=== PATIENT | female | born 1930 | race Caucasian/White ===

== ENCOUNTER 2018-03-14 03:41 | Inpatient (IN) | payer MEDICARE, OTHER ==
[~2018-03-14] VITALS: Ht 162.6 cm; Wt 85.3 kg
[~2018-03-14 03:41] MED LIST: ACETAMINOPHEN-1 EAC1 PO; ANTIVERT25 MG PO; ASPIRIN EC81 M1 PO; AZITHROMYCIN 2250 MG PO; Astepro NASAL; BACTRIM DS TAB1 EACH PO; CALTRATE-600 W1 EACH PO; CLARITIN10 MG PO; CLONAZEPAM 0.50.5 M1 PO; CLONAZEPAM 1 MG1 M1 PO; FAMOTIDINE20 MG PO; GABAPENTIN100 MG PO; HYDROCODONE-AP1 EAC6 PO; IRON325 PO; LISINOPRIL40 MG PO; MAGNESIUM400 MG PO; MECLIZINE HCL25 M1 PO; MYRBETRIQ25 MG PO; NORVASC10 MG PO; PEPCID20 MG PO; PRAMOSONE 2.528.4 GM; SYNTHROID100 MCG PO; SYNTHROID75 MCG PO; TESSALON PERLE100 MG PO; VITAMIN B-12500 MCG PO; VITAMIN D1000 UNI1 PO; VITAMIN E400 UNIT PO; VITAMINC500 PO; ZYRTEC10 M5 PO
[2018-03-14 03:48] VITALS: BP 172/83
[2018-03-14 04:14] LABS: ABSOLUTE BASOPHILS 0.1 thou/uL (0.0-0.2); ABSOLUTE EOSINOPHILS 0.4 thou/uL (0.0-0.7); ABSOLUTE MONOCYTES 0.9 thou/uL (0.0-1.2); BASOPHILS 1.5 %; EOSINOPHILS 5.9 %; HEMATOCRIT 38.7 % (37.0-47.0); LYMPHOCYTES 15.3 %; MCH 34.4 pg (26.0-34.0); MCHC 33.6 g/dL (28.0-37.0); MCV 102.5 fL (80.0-100.0); MONOCYTES 14.7 %; MPV 6.4 fl. (7.2-11.1); NUCLEATED RBCS 0 /100WBC; PLATELET COUNT* 284 thou/uL (150-400); POLYS 62.6 %; RBC 3.78 mil/uL (4.20-5.00); RDW-CV 13.7 % (10.5-14.5); WBC 6.3 thou/uL (4.0-11.0)
[2018-03-14 04:30] LABS: ANION GAP < 0 mmol/L (7-16); BUN 23 mg/dL (7-18); CHLORIDE 104 mmol/L (98-107); CO2 35 mmol/L (21-32); GLUCOSE 118 mg/dL (70-99); POTASSIUM 3.5 mmol/L (3.5-5.1); SODIUM 138 mmol/L (136-145)
[2018-03-14 04:35] LABS: ALKALINE PHOSPHATASE 99 U/L (46-116); SGOT 19 U/L (15-37); SGPT 14 U/L (30-65); TOTAL BILIRUBIN 0.3 mg/dL (<0.1-1.0); TOTAL PROTEIN 6.5 g/dL (6.4-8.2)
[2018-03-14 05:12] LABS: URINE BILIRUBIN NEGATIVE (Negative); URINE BLOOD NEGATIVE (Negative); URINE CLARITY CLEAR; URINE COLOR YELLOW; URINE GLUCOSE-RANDOM NEGATIVE (Negative); URINE KETONES NEGATIVE (Negative); URINE LEUKOCYTES-REFLEX NEGATIVE (Negative); URINE NITRITE-REFLEX NEGATIVE (Negative); URINE PROTEIN NEGATIVE (Negative); URINE UROBILINOGEN 0.2 E.U./dl (0.2-1.0)
[2018-03-14 08:07] VITALS: BP 148/78
[2018-03-14 08:44] VITALS: BP 191/97
[2018-03-14 15:30] VITALS: BP 157/80
[2018-03-14 20:53] VITALS: BP 133/75
[2018-03-15 08:00] VITALS: BP 168/94
--- NOTE | 2018-03-15 14:00 | EKG ---
[place] [address] ELECTROCARDIOGRAM REPORT Name: JOSHUA SELF Room: [address] ADM IN M.R.#: [id number] Admission: 03/14/18 Attend Phys: Alhaji Garcia, Discharge: Date of : 31 Report #: [id number] THIS REPORT FOR: //name// [facility] Test Date: 2018-03-15 Test Time: 08:54:22 Pat Name: JOSHUA SELF Department: Room: [address] Gender: F Senior Ui Designer: : 1930 Requested By: Arvind Lima Order Number: [id number] William MD: Jaspal Archer Measurements Intervals [place] Rate: 66 P: 66 CT: 189 QRS: -19 QRSD: 93 T: 33 QT: 414 QTc: 434 Interpretive Statements Sinus rhythm Borderline left axis deviation Nonspecific T abnormalities, anterior leads Compared to ECG 05/24/2017 12:07:33 no change Electronically Signed On 03-15-2018 14:00:26 CDT by Jaspal Archer [email or web address] <ELECTRONICALLY SIGNED> By: Jaspal Archer MD, [facility] 03/15/18 1400 0854 0854 Jaspal Archer MD, [facility] /EPI
[2018-03-15 20:15] VITALS: BP 117/94; BP 132/81
[2018-03-16] VITALS: BP 117/62; BP 143/78
[2018-03-16 04:00] VITALS: BP 151/76
[2018-03-16 07:51] VITALS: BP 175/90
[2018-03-16 16:00] VITALS: BP 146/79
[2018-03-16 20:00] VITALS: BP 168/76
[2018-03-17 08:40] VITALS: BP 113/74
[2018-03-17 16:21] VITALS: BP 163/79
[2018-03-17] MEDS ORDERED: CARBAMAZEPINE200 M5 PO (20:46)
[2018-03-17 23:08] VITALS: BP 137/84
[2018-03-18 08:45] VITALS: BP 163/92
[2018-03-18 14:40] VITALS: BP 163/92
[2018-03-18 16:00] VITALS: BP 145/76
--- NOTE | 2018-03-21 15:12 | CON ---
[address] [address] CONSULTATION Name: JOSHUA SELF Room: [address]#: [id number] Admission: 03/14/18 Attend Phys: Alhaji Garcia, Discharge: 03/18/18 Date of : 31 Report #: [id number] THIS REPORT FOR: //name// CC: Olga Garcia DATE OF SERVICE: 03/17/2018 HISTORY OF PRESENT ILLNESS: The patient is an 88-year-old single white female who I was asked to see in the hospital today after she was noted to have an abnormal troponin. The patient has a long history of syncope. She apparently had a nuclear stress test at [facility] in the past. She has never had a heart catheterization. She apparently had a tilt table test in the past that was negative for neurocardiogenic syncope. She has had a 30-day event recorder in the past that showed no significant arrhythmias. She is felt to have possible vertigo or TIA. She actually saw my partner, Dr. Frazier, in the past. She has felt she may have had a TIA after one episode when she was not responding and fell to the ground. No further cardiac workup was recommended. The patient currently lives at home with her son. She is not very active and uses a walker. The patient was brought to the hospital 5 days ago. She apparently had fallen after feeling lightheaded. She hit her head on a chair. She used Life Alert to call paramedics. She denied any recent chest pain, shortness of breath, palpitations. She has had no recent vomiting or bleeding. She is known to have an abnormal troponin. Cardiology consultation was requested. PAST MEDICAL HISTORY: Significant for hysterectomy, knee surgery, cervical spine fusion, she has a history of hypertension. MEDICATIONS: On admission consisted of clonazepam, meclizine, lisinopril, Synthroid, aspirin. ALLERGIES: SHE HAS INTOLERANCE TO CIPRO AND PENICILLIN. FAMILY HISTORY: Mother had congestive heart failure. SOCIAL HISTORY: She is , lives in [place], [place]. No smoking or alcohol abuse. REVIEW OF SYSTEMS: She has had no definite history of stroke. She has had no history of asthma. She had breast cancer in the past, treated with radiation therapy. No history of peptic ulcer disease. She has had chronic kidney disease. She sees a psychiatrist. PHYSICAL EXAMINATION: GENERAL: Revealed an elderly female, sitting up in bed. She [place] [address] CONSULTATION Name: JOSHUA SELF Room: [address]#: [id number] Admission: 03/14/18 Attend Phys: Alhaji Garcia, Discharge: 03/18/18 Date of : 31 Report #: [id number] VITAL SIGNS: She had a blood pressure of 140/80, pulse 70. She is afebrile. HEENT: She is anicteric, conjunctiva pink. Mucous membranes appear dry. NECK: Veins do not appear distended. CHEST: Clear to auscultation. CARDIOVASCULAR: Regular rate and rhythm. ABDOMEN: Soft, nontender. EXTREMITIES: Had trace edema. SKIN: Cool and dry. NEUROLOGIC: She was slow moving. DIAGNOSTIC DATA: ECG showed a sinus rhythm with nonspecific T-wave changes. Her workup included x-rays consisting of CT scan of the head without contrast that showed age-related changes only. LABORATORY DATA: Sodium 140, creatinine 0.7. Liver function studies are normal. Albumin 2.7. Troponin 0.07. White blood cell count 5.5, hemoglobin 12.6. IMPRESSION AND RECOMMENDATIONS: 1. Fall. Recommend no further cardiac evaluation. 2. Borderline troponin. No history of angina. Recommend no further cardiac evaluation. 3. Hypertension. The patient is on an KHADIJAH inhibitor. 4. History of vertigo. 5. History of breast cancer. <ELECTRONICALLY SIGNED> By: Jaspal Archer MD, [facility] 03/21/18 1512 1144 1821Daviluis e Archer MD, FACC /nt
== END 2018-03-18 18:45 | disposition home health service (06) | DRG 542 ==
LOC: M.ERS 03:41 → M.TBA-ER 06:39 → M.2W 06:39 → M.3W 03-16 17:43
PROVIDERS: Emergency Medicine; ADMIT Family Medicine
DX: M80.08XA Age-related osteoporosis with current pathological fracture, vertebra(e), initial encounter for fracture (principal); E43 Unspecified severe protein-calorie malnutrition; J96.10 Chronic respiratory failure, unspecified whether with hypoxia or hypercapnia; F41.9 Anxiety disorder, unspecified; R26.9 Unspecified abnormalities of gait and mobility; E03.9 Hypothyroidism, unspecified; M17.0 Bilateral primary osteoarthritis of knee; I10 Essential (primary) hypertension; W18.39XA Other fall on same level, initial encounter; Y92.89 Other specified places as the place of occurrence of the external cause; Y93.89 Activity, other specified; Y99.8 Other external cause status; Z90.710 Acquired absence of both cervix and uterus; Z86.73 Personal history of transient ischemic attack (TIA), and cerebral infarction without residual deficits; Z85.3 Personal history of malignant neoplasm of breast; Z92.3 Personal history of irradiation; Z79.899 Other long term (current) drug therapy; Z88.1 Allergy status to other antibiotic agents; Z88.0 Allergy status to penicillin; Z88.5 Allergy status to narcotic agent; Z88.2 Allergy status to sulfonamides; Z98.1 Arthrodesis status; Z68.32 Body mass index [BMI] 32.0-32.9, adult

== ENCOUNTER 2018-04-27 14:36 | Inpatient (IN) | payer MEDICARE, OTHER ==
[~2018-04-27] VITALS: Ht 165.1 cm; Wt 81.7 kg
[~2018-04-27 14:36] MED LIST changes: +CARBAMAZEPINE200 M5 PO
[2018-04-27 14:37] VITALS: BP 163/79
[2018-04-27] MEDS ORDERED: B COMPLEX # 11 EACH PO (14:56)
[2018-04-27] MEDS ORDERED: CALCIUM 500 +1 EAC5 PO (14:57)
[2018-04-27] MEDS ORDERED: CELEXA20 MG PO (14:58)
[2018-04-27] MEDS ORDERED: LOTRISONE CREAM15 GM TOP (14:59)
[2018-04-27] MEDS ORDERED: VITAMIN B-12500 MCG PO (15:00)
[2018-04-27] MEDS ORDERED: COENZYME Q10200 M2 PO (15:00)
[2018-04-27] MEDS ORDERED: ENOXAPARIN80 MG/0.1 SUBQ (15:01)
[2018-04-27] MEDS ORDERED: HYDROCHLOROTH12.5 M1 PO (15:02)
[2018-04-27] MEDS ORDERED: MYRBETRIQ50 MG PO (15:03)
[2018-04-27] MEDS ORDERED: VESICARE 5 MG TA5 MG PO (15:03)
[2018-04-27] MEDS ORDERED: VOLTAREN GEL 1100 G2 TOP (15:04)
[2018-04-27] MEDS ORDERED: COUMADIN 5 MG TA5 M1 PO (15:04)
[2018-04-27 15:53] LABS: HEMOGLOBIN 12.3 gm/dL (12.0-15.0); MCH 35.2 pg (26.0-34.0); MCHC 34.2 g/dL (28.0-37.0); MCV 103.1 fL (80.0-100.0); MPV 6.1 fl. (7.2-11.1); NUCLEATED RBCS 0 /100WBC; PLATELET COUNT* 427 thou/uL (150-400); RBC 3.49 mil/uL (4.20-5.00); RDW-CV 13.9 % (10.5-14.5); WBC 4.3 thou/uL (4.0-11.0)
[2018-04-27 16:11] LABS: CREATININE 0.8 mg/dL (0.6-1.3)
[2018-04-27 16:15] LABS: TOTAL BILIRUBIN 0.3 mg/dL (<0.1-1.0); TOTAL PROTEIN 6.3 g/dL (6.4-8.2)
[2018-04-27 16:27] LABS: ABSOLUTE LYMPHOCYTES 1.3 thou/uL (0.8-5.3); ABSOLUTE MONOCYTES 0.3 thou/uL (0.0-1.2); ABSOLUTE NEUTROPHILS 2.7 thou/uL (1.6-8.1); PLATELET ESTIMATE ADEQUATE
[2018-04-27 18:27] LABS: URINE BILIRUBIN NEGATIVE (Negative); URINE BLOOD NEGATIVE (Negative); URINE CLARITY CLEAR; URINE COLOR YELLOW; URINE GLUCOSE-RANDOM NEGATIVE (Negative); URINE KETONES NEGATIVE (Negative); URINE LEUKOCYTES-REFLEX NEGATIVE (Negative); URINE NITRITE-REFLEX NEGATIVE (Negative); URINE PROTEIN NEGATIVE (Negative); URINE UROBILINOGEN 0.2 E.U./dl (0.2-1.0)
[2018-04-27 19:43] VITALS: BP 164/84
[2018-04-27 20:10] VITALS: BP 154/74
[2018-04-28] MEDS ORDERED: LISINOPRIL10 MG PO (01:20)
[2018-04-28] MEDS ORDERED: BONIVA150 MG PO (01:25)
[2018-04-28 05:21] LABS: HEMATOCRIT 34.3 % (37.0-47.0); HEMOGLOBIN 11.7 gm/dL (12.0-15.0); MCH 35.2 pg (26.0-34.0); MCHC 34.1 g/dL (28.0-37.0); MCV 103.2 fL (80.0-100.0); MPV 6.4 fl. (7.2-11.1); RBC 3.32 mil/uL (4.20-5.00); RDW-CV 13.8 % (10.5-14.5); WBC 4.6 thou/uL (4.0-11.0)
[2018-04-28 05:27] LABS: INR 1.9; PROTIME 19.6 Seconds (9.20-11.50)
[2018-04-28 05:31] LABS: CALCIUM 8.5 mg/dL (8.5-10.1); CREATININE 0.8 mg/dL (0.6-1.3); MAGNESIUM 1.8 mg/dL (1.8-2.4)
[2018-04-28 08:00] VITALS: BP 147/76
[2018-04-28 16:11] VITALS: BP 115/64
[2018-04-28 20:00] VITALS: BP 115/60
[2018-04-29 05:03] LABS: INR 2.2; PROTIME 22.2 Seconds (9.20-11.50)
[2018-04-29 08:00] VITALS: BP 115/60
[2018-04-29 15:59] VITALS: BP 103/61
[2018-04-29 21:00] VITALS: BP 122/62
[2018-04-30 04:56] LABS: INR 1.9; PROTIME 19.4 Seconds (9.20-11.50)
[2018-04-30 08:00] VITALS: BP 128/64
[2018-04-30 16:00] VITALS: BP 108/60
[2018-05-01] VITALS: BP 122/69
[2018-05-01 04:34] LABS: HEMATOCRIT 36.4 % (37.0-47.0); HEMOGLOBIN 12.2 gm/dL (12.0-15.0); MCH 34.9 pg (26.0-34.0); MCHC 33.4 g/dL (28.0-37.0); MCV 104.4 fL (80.0-100.0); MPV 6.4 fl. (7.2-11.1); RBC 3.49 mil/uL (4.20-5.00); WBC 5.1 thou/uL (4.0-11.0)
[2018-05-01 04:39] LABS: INR 1.6
[2018-05-01 04:45] LABS: CALCIUM 8.5 mg/dL (8.5-10.1); CREATININE 0.9 mg/dL (0.6-1.3); POTASSIUM 4.8 mmol/L (3.5-5.1)
[2018-05-01 08:00] VITALS: BP 128/70
[2018-05-01 16:40] VITALS: BP 118/67
[2018-05-02 01:28] VITALS: BP 117/64
[2018-05-02 04:16] LABS: CALCIUM 8.4 mg/dL (8.5-10.1); CREATININE 0.8 mg/dL (0.6-1.3); HEMATOCRIT 34.3 % (37.0-47.0); HEMOGLOBIN 11.8 gm/dL (12.0-15.0); MAGNESIUM 2.1 mg/dL (1.8-2.4); MCH 35.5 pg (26.0-34.0); MCHC 34.3 g/dL (28.0-37.0); MCV 103.4 fL (80.0-100.0); MPV 6.4 fl. (7.2-11.1); POTASSIUM 4.2 mmol/L (3.5-5.1); RBC 3.32 mil/uL (4.20-5.00); RDW-CV 13.9 % (10.5-14.5); WBC 4.6 thou/uL (4.0-11.0)
[2018-05-02 04:19] LABS: INR 1.4
[2018-05-02 16:10] VITALS: BP 82/48
[2018-05-02 20:00] VITALS: BP 110/68
[2018-05-03 05:07] LABS: INR 1.3; PROTIME 13.5 Seconds (9.20-11.50)
[2018-05-03 07:50] VITALS: BP 114/66
[2018-05-03] MEDS ORDERED: GABAPENTIN 100100 MG PO (12:26)
[2018-05-03 15:58] VITALS: BP 113/63
== END 2018-05-03 18:18 | DRG 543 ==
LOC: M.ERS 14:36 → M.TBA-ER 18:20 → M.3W 18:20
PROVIDERS: Family Medicine; Nurse Practitioner Family; ADMIT Internal Medicine
DX: M80.08XA Age-related osteoporosis with current pathological fracture, vertebra(e), initial encounter for fracture (principal); E44.0 Moderate protein-calorie malnutrition; G95.9 Disease of spinal cord, unspecified; I10 Essential (primary) hypertension; M47.895 Other spondylosis, thoracolumbar region; R26.9 Unspecified abnormalities of gait and mobility; D75.89 Other specified diseases of blood and blood-forming organs; Z68.30 Body mass index [BMI] 30.0-30.9, adult; Z86.73 Personal history of transient ischemic attack (TIA), and cerebral infarction without residual deficits; Z92.3 Personal history of irradiation; Z87.81 Personal history of (healed) traumatic fracture; Z85.3 Personal history of malignant neoplasm of breast; Z86.718 Personal history of other venous thrombosis and embolism; Z86.711 Personal history of pulmonary embolism; Z90.710 Acquired absence of both cervix and uterus; Z79.01 Long term (current) use of anticoagulants; Z79.82 Long term (current) use of aspirin; Z79.899 Other long term (current) drug therapy; Z88.0 Allergy status to penicillin; Z88.2 Allergy status to sulfonamides; Z88.5 Allergy status to narcotic agent; Z88.8 Allergy status to other drugs, medicaments and biological substances

== ENCOUNTER 2018-05-03 17:26 | Inpatient (IN) | payer MEDICARE, OTHER ==
[~2018-05-03] VITALS: Ht 165.1 cm; Wt 82.1 kg
--- NOTE | ~2018-05-03 | D ---
[facility] [address] [place] [address] DISCHARGE SUMMARY Name: JOSHUA SELF Room: [address] IN M.R.#: [id number] Admission: 05/03/18 Attend Phys: Brenda Puga DO Discharge: 05/17/18 Date of : 31 Report #: [id number] THIS REPORT FOR: //name// CC: RITU Puga Physician staff DATE OF SERVICE: 05/17/2018 The patient is discharged to a skilled level of care with PT, OT, case management and speech language pathology. When she is discharged from that level of care, she will follow with primary care physician within 1 week. She will maintain a regular diet. MEDICATIONS: Reviewed and reconciled by myself and are available in the MAR. PHYSICAL EXAMINATION: GENERAL: Alert, oriented, in no apparent distress. VITAL SIGNS: Reviewed and are stable. HEENT: Head atraumatic, normocephalic. Pupils equal, round, reactive. ABDOMEN: Soft, nontender, nondistended. NEUROLOGIC: Cranial nerves 2-12 are grossly intact with no focal neuro deficits; 5/5 strength in the bilateral upper and lower extremities. SKIN: Warm and dry. No rashes or lesions noted. By: 1526 [id number] Puga DO /nt
[~2018-05-03 17:26] MED LIST changes: +B COMPLEX # 11 EACH PO; +BONIVA150 MG PO; +CALCIUM 500 +1 EAC5 PO; +CELEXA20 MG PO; +COENZYME Q10200 M2 PO; +COUMADIN 5 MG TA5 M1 PO; +ENOXAPARIN80 MG/0.1 SUBQ; +GABAPENTIN 100100 MG PO; +HYDROCHLOROTH12.5 M1 PO; +LISINOPRIL10 MG PO; +LOTRISONE CREAM15 GM TOP; +MYRBETRIQ50 MG PO; +VESICARE 5 MG TA5 MG PO; +VOLTAREN GEL 1100 G2 TOP
[2018-05-03 18:40] VITALS: BP 127/70
[2018-05-03 19:45] VITALS: BP 130/56
[2018-05-03 19:53] VITALS: BP 109/60
[2018-05-04 04:14] LABS: HEMATOCRIT 31.9 % (37.0-47.0); HEMOGLOBIN 10.9 gm/dL (12.0-15.0); MCH 35.3 pg (26.0-34.0); MCHC 34.1 g/dL (28.0-37.0); MCV 103.6 fL (80.0-100.0); MPV 6.1 fl. (7.2-11.1); RBC 3.08 mil/uL (4.20-5.00); RDW-CV 13.6 % (10.5-14.5)
[2018-05-04 04:27] LABS: INR 1.3; PROTIME 13.5 Seconds (9.20-11.50)
[2018-05-04 04:41] LABS: CALCIUM 8.5 mg/dL (8.5-10.1); POTASSIUM 4.5 mmol/L (3.5-5.1)
[2018-05-04 07:59] VITALS: BP 108/60
[2018-05-04 20:15] VITALS: BP 83/48
[2018-05-05 04:19] LABS: INR 1.3; PROTIME 13.8 Seconds (9.20-11.50)
[2018-05-05 08:00] VITALS: BP 131/73
[2018-05-05 20:05] VITALS: BP 96/54
[2018-05-06 03:56] LABS: INR 1.4; PROTIME 14.2 Seconds (9.20-11.50)
[2018-05-06 07:36] VITALS: BP 105/56
[2018-05-06 20:00] VITALS: BP 119/67
[2018-05-07 05:23] LABS: INR 1.4; PROTIME 14.8 Seconds (9.20-11.50)
[2018-05-07 08:07] VITALS: BP 125/63
[2018-05-07 19:00] VITALS: BP 174/96
[2018-05-08 04:16] LABS: INR 1.5; PROTIME 15.1 Seconds (9.20-11.50)
[2018-05-08 08:02] VITALS: BP 122/74
[2018-05-08 09:07] VITALS: BP 122/74
[2018-05-08 20:15] VITALS: BP 100/59
[2018-05-09 08:03] VITALS: BP 114/59
[2018-05-09 19:55] VITALS: BP 97/64
[2018-05-10 07:30] VITALS: BP 115/60
[2018-05-10 14:37] LABS: CALCIUM 8.9 mg/dL (8.5-10.1); CREATININE 0.9 mg/dL (0.6-1.3); POTASSIUM 4.3 mmol/L (3.5-5.1)
[2018-05-10 20:00] VITALS: BP 140/75
[2018-05-11 07:53] VITALS: BP 103/60
--- NOTE | 2018-05-11 13:59 | PLAN ---
[address] [address] REHAB UNIT PLAN OF CARE Name: JOSHUA SELF Room: [address] IN .R.#: [id number] Admission: 05/03/18 Attend Phys: Brenda Puga DO Discharge: Date of : 31 Report #: [id number] THIS REPORT FOR: //name// CC: RITU Puga Physician staff The patient is an 88-year-old female with lumbar spondylosis with myelopathy. She is doing well this morning with therapies and is on adequate pain control. The patient's prior level of function was modified independent to independent and her current level of function is minimal assist. Her estimated length of stay on the rehab floor is 12-14 days. Her rehabilitation prognosis is good. Her medical prognosis is good. As far as physical therapy, the patient will be seen 60-90 minutes per day for 5 days a week for ambulation, balance and coordination. Occupational therapy, the patient will be seen 60-90 minutes per day for 5 days a week for upper extremity strength, balance, coordination, bathing, dressing, and toileting. For speech and language pathology, the patient will be seen 30-90 minutes per day for 5 days a week. This is an overall plan of care and may change and will be updated as needed. <ELECTRONICALLY SIGNED> By: Brenda Puga DO 05/11/18 1359 1211 1521Kelrosalina Puga DO /danika
[2018-05-11 19:57] VITALS: BP 140/65
[2018-05-12 07:49] VITALS: BP 145/71
[2018-05-12 20:00] VITALS: BP 135/79
[2018-05-13 08:00] VITALS: BP 141/70
[2018-05-13 09:31] VITALS: BP 141/70
[2018-05-13 19:56] VITALS: BP 138/76
[2018-05-14 08:05] VITALS: BP 143/72
[2018-05-14 20:00] VITALS: BP 119/76
[2018-05-15 05:04] LABS: HEMATOCRIT 32.4 % (37.0-47.0); HEMOGLOBIN 11.3 gm/dL (12.0-15.0); MCH 36.2 pg (26.0-34.0); MCHC 34.9 g/dL (28.0-37.0); MCV 103.8 fL (80.0-100.0); MPV 6.1 fl. (7.2-11.1); RBC 3.13 mil/uL (4.20-5.00); RDW-CV 13.8 % (10.5-14.5); WBC 3.7 thou/uL (4.0-11.0)
[2018-05-15 05:27] LABS: CALCIUM 8.7 mg/dL (8.5-10.1); CREATININE 0.9 mg/dL (0.6-1.3); POTASSIUM 4.2 mmol/L (3.5-5.1)
[2018-05-15 08:00] VITALS: BP 148/77
[2018-05-15 20:00] VITALS: BP 120/69
[2018-05-16 07:50] VITALS: BP 168/55
[2018-05-16 20:00] VITALS: BP 140/86
[2018-05-17 07:42] VITALS: BP 147/78
[2018-05-17] MEDS ORDERED: BONIVA150 MG PO ×2 (12:20→12:21)
[2018-05-17] MEDS ORDERED: CO Q-10100 MG PO (12:22)
[2018-05-17] MEDS ORDERED: FLEXERIL PO (12:28)
[2018-05-17] MEDS ORDERED: ELIQUIS5 MG PO (12:30)
[2018-05-17] MEDS ORDERED: NORVASC5 MG PO (12:32)
[2018-05-17] MEDS ORDERED: OXYBUTYNIN 5 MG5 M2 PO (12:33)
[2018-05-17] MEDS ORDERED: SEROQUEL 25 MG25 M1 PO (12:34)
[2018-05-17] MEDS ORDERED: TRAMADOL 50 MG50 MG PO ×2 (12:36→13:14)
[2018-05-17 12:49] VITALS: BP 147/78
[2018-05-17] MEDS ORDERED: CYCLOBENZAPRINE10 MG PO (13:14)
[2018-05-17] MEDS ORDERED: CLONAZEPAM 1 MG1 M1 PO (13:14)
--- NOTE | 2018-05-19 13:02 | CON ---
[address] [address] CONSULTATION Name: JOSHUA SELF Room: [address] IN .R.#: [id number] Admission: 05/03/18 Attend Phys: Brenda Puga DO Discharge: 05/17/18 Date of : 31 Report #: [id number] THIS REPORT FOR: //name// CC: RITU Puga Physician staff DATE OF SERVICE: 05/05/2018 CHIEF COMPLAINT: The patient is an 88-year-old female known to me as an outpatient in my office for routine podiatric foot care. 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 She was admitted to rehabilitation for lumbar spondylosis with myelopathy. 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 No underlying ulceration, inflammation, drainage or cardinal signs of infection. Severe hallux valgus bunion deformities and rigid hammertoes of the second through fourth toes bilaterally. She has palpable dorsalis pedis and posterior tibial pulses bilaterally, venous insufficiency with varicosities to both legs, onychomycosis without paronychia. IMPRESSION: Hallux valgus, hammertoe deformities, onychomycosis, plantar keratoma, right foot. PLAN: I debrided the keratoma with a scalpel and applied a 2 x 2 inch bordered foam with a piece of Aquacel Ag. I will follow up the patient in my office. I recommend a full length total contact insert with supportive shoes. <ELECTRONICALLY SIGNED> By: Levi Gracia DPM 05/19/18 1302 1654 2244Deden Gracia DPM /nt
== END 2018-05-17 15:00 | DRG 552 ==
LOC: M.REH 17:26
PROVIDERS: Family Medicine; Internal Medicine; ADMIT Physical Medicine & Rehabilitation
DX: M47.15 Other spondylosis with myelopathy, thoracolumbar region (principal); M80.88XA Other osteoporosis with current pathological fracture, vertebra(e), initial encounter for fracture; N17.9 Acute kidney failure, unspecified; D61.818 Other pancytopenia; M20.11 Hallux valgus (acquired), right foot; L57.0 Actinic keratosis; M21.611 Bunion of right foot; M20.41 Other hammer toe(s) (acquired), right foot; B35.1 Tinea unguium; M54.32 Sciatica, left side; M54.31 Sciatica, right side; M16.0 Bilateral primary osteoarthritis of hip; L25.8 Unspecified contact dermatitis due to other agents; R53.81 Other malaise; F43.21 Adjustment disorder with depressed mood; F32.9 Major depressive disorder, single episode, unspecified; I12.9 Hypertensive chronic kidney disease with stage 1 through stage 4 chronic kidney disease, or unspecified chronic kidney disease; N18.3 Chronic kidney disease, stage 3 (moderate); F41.9 Anxiety disorder, unspecified; D63.8 Anemia in other chronic diseases classified elsewhere; D52.9 Folate deficiency anemia, unspecified; Z86.711 Personal history of pulmonary embolism; Z86.718 Personal history of other venous thrombosis and embolism; Z86.73 Personal history of transient ischemic attack (TIA), and cerebral infarction without residual deficits; Z85.3 Personal history of malignant neoplasm of breast; Z88.8 Allergy status to other drugs, medicaments and biological substances; Z88.6 Allergy status to analgesic agent; Z88.0 Allergy status to penicillin; Z88.2 Allergy status to sulfonamides; Z79.899 Other long term (current) drug therapy; Z79.82 Long term (current) use of aspirin; Z90.710 Acquired absence of both cervix and uterus; Z92.3 Personal history of irradiation

== ENCOUNTER → 2018-06-24 | Outpatient (CLI) | payer MEDICARE, OTHER ==
[~2018-06-24] MED LIST changes: +CO Q-10100 MG PO; +CYCLOBENZAPRINE10 MG PO; +ELIQUIS5 MG PO; +FLEXERIL PO; +NORVASC5 MG PO; +OXYBUTYNIN 5 MG5 M2 PO; +SEROQUEL 25 MG25 M1 PO; +TRAMADOL 50 MG50 MG PO
== END ==
LOC: M.RAD 05-18 11:00
DX: R92.8 Other abnormal and inconclusive findings on diagnostic imaging of breast (principal)

== ENCOUNTER → 2018-06-29 | Outpatient (CLI) | payer MEDICARE, OTHER ==
[~2018-06-29] VITALS: Ht 165.1 cm; Wt 82.6 kg
[~2018-06-29] MED LIST changes: +COLACE100 MG PO; +FLEET ENEMA133 ML RECTAL; +LASIX 20 MG TAB20 MG PO; +MILK OF MA2400 MG/10 PO; +MIRALAX17 GM PO; +NORVASC2.5 MG PO; -NORVASC5 MG PO; +NYAMYC15 GM TOP; +POTASSIUM 25 M25 MEQ PO; +VISTARIL 25 MG25 M1 PO
[2018-06-29 18:12] VITALS: BP 144/79
[2018-06-29 18:28] LABS: HEMATOCRIT 33.7 % (37.0-47.0); HEMOGLOBIN 11.3 gm/dL (12.0-15.0); MCH 35.5 pg (26.0-34.0); MCHC 33.5 g/dL (28.0-37.0); MCV 106.1 fL (80.0-100.0); MPV 5.8 fl. (7.2-11.1); NUCLEATED RBCS 0 /100WBC; PLATELET COUNT* 463 thou/uL (150-400); RBC 3.18 mil/uL (4.20-5.00); RDW-CV 13.9 % (10.5-14.5); WBC 5.6 thou/uL (4.0-11.0)
[2018-06-29 18:38] LABS: ANION GAP 5 mmol/L (7-16); BUN 33 mg/dL (7-18); CALCIUM 8.9 mg/dL (8.5-10.1); CHLORIDE 101 mmol/L (98-107); CO2 36 mmol/L (21-32); CREATININE 1.2 mg/dL (0.6-1.3); GLUCOSE 115 mg/dL (70-99); INR 1.1; POTASSIUM 3.8 mmol/L (3.5-5.1); SODIUM 142 mmol/L (136-145)
[2018-06-29 18:49] LABS: ALKALINE PHOSPHATASE 160 U/L (46-116); LIPASE 108 U/L (73-393); NT-PRO BRAIN NAT PEPTIDE 210 pg/mL (<300); SGOT 23 U/L (15-37); SGPT 24 U/L (30-65); TOTAL BILIRUBIN 0.2 mg/dL (<0.1-1.0); TOTAL PROTEIN 6.3 g/dL (6.4-8.2); TROPONIN-I LEVEL <0.06 ng/mL (<0.06)
[2018-06-29 19:03] LABS: ABSOLUTE BASOPHILS 0.1 thou/uL (0.0-0.2); ABSOLUTE EOSINOPHILS 0.4 thou/uL (0.0-0.7); ABSOLUTE LYMPHOCYTES 0.7 thou/uL (0.8-5.3); ABSOLUTE MONOCYTES 0.4 thou/uL (0.0-1.2)
[2018-06-29 19:04] LABS: MACROCYTES 1+; PLATELET ESTIMATE ADEQUATE
--- NOTE | 2018-06-30 09:01 | EKG ---
[place] [address] ELECTROCARDIOGRAM REPORT Name: JOSHUA SELF Room: [facility]#: [id number] Admission: 06/29/18 Attend Phys: Barrington Herman, Discharge: Date of : 31 Report #: [id number] THIS REPORT FOR: //name// [facility] ED Test Date: 2018-06-29 Test Time: 17:48:16 Pat Name: JOSHUA SELF Department: Room: Gender: F Back Hoe Machine Operator: Yony OBANDO : 1930 Requested By: Vahid Matt Order Number: [id number] MD: Jaspal Archer Measurements Intervals [place] Rate: 84 P: 51 MT: 204 QRS: -17 QRSD: 99 T: 41 QT: 372 QTc: 440 Interpretive Statements Sinus rhythm nonspecific st changes Borderline left axis deviation Compared to ECG 03/15/2018 08:54:22 no change Electronically Signed On 06-30-2018 9:01:36 SHOE LAY OUT PLANNER by Jaspal Archer [email or web address] <ELECTRONICALLY SIGNED> By: Jaspal Archer MD, [facility] 06/30/18900 1748 1748 Jaspal Archer MD, FACC /EPI
== END ==
LOC: M.ULTRA 15:37 → M.ERS 15:37
PROVIDERS: Emergency Medicine
DX: K44.9 Diaphragmatic hernia without obstruction or gangrene (principal); R60.0 Localized edema; R10.814 Left lower quadrant abdominal tenderness; I10 Essential (primary) hypertension; Z86.718 Personal history of other venous thrombosis and embolism; Z85.3 Personal history of malignant neoplasm of breast; Z90.710 Acquired absence of both cervix and uterus; Z79.899 Other long term (current) drug therapy

== ENCOUNTER 2018-06-30 14:04 | Inpatient (IN) | payer MEDICARE, OTHER ==
[~2018-06-30] VITALS: Ht 165.1 cm; Wt 88.0 kg
[2018-06-30 14:04] VITALS: BP 121/76
[~2018-06-30 14:04] MED LIST changes: -CALCIUM 500 +1 EAC5 PO; +CALCIUM 600 +1 EAC1 PO; -CARBAMAZEPINE200 M5 PO; +CARBAMAZEPINE200 MG PO; -FLEET ENEMA133 ML RECTAL; +HYDROXYZINE HCL25 M1 PO; -MILK OF MA2400 MG/10 PO; -MIRALAX17 GM PO; -NYAMYC15 GM TOP; -POTASSIUM 25 M25 MEQ PO; -VISTARIL 25 MG25 M1 PO
[2018-06-30] MEDS ORDERED: MILK OF MA2400 MG/10 PO (14:10)
[2018-06-30] MEDS ORDERED: MIRALAX17 GM PO (14:10)
[2018-06-30] MEDS ORDERED: FLEET ENEMA133 ML RECTAL (14:10)
[2018-06-30] MEDS ORDERED: OXYBUTYNIN 5 MG5 M2 PO (14:11)
[2018-06-30] MEDS ORDERED: NYAMYC15 GM TOP (14:11)
[2018-06-30] MEDS ORDERED: POTASSIUM20 PO (14:12)
[2018-06-30 14:22] LABS: HEMATOCRIT 33.2 % (37.0-47.0); HEMOGLOBIN 11.2 gm/dL (12.0-15.0); MCH 35.2 pg (26.0-34.0); MCHC 33.6 g/dL (28.0-37.0); MCV 104.9 fL (80.0-100.0); MPV 6.1 fl. (7.2-11.1); NUCLEATED RBCS 0 /100WBC; PLATELET COUNT* 408 thou/uL (150-400); RBC 3.17 mil/uL (4.20-5.00)
[2018-06-30 14:26] LABS: CALCIUM 8.4 mg/dL (8.5-10.1); CREATININE 1.2 mg/dL (0.6-1.3); POTASSIUM 3.5 mmol/L (3.5-5.1)
[2018-06-30 14:28] LABS: APTT 29.9 Seconds (25.0-31.3); INR 1.2; PROTIME 11.9 Seconds (9.20-11.50)
[2018-06-30 14:38] LABS: ALBUMIN 2.7 g/dL (3.4-5.0); TOTAL BILIRUBIN 0.3 mg/dL (<0.1-1.0); TOTAL PROTEIN 6.4 g/dL (6.4-8.2); TROPONIN-I LEVEL 0.46 ng/mL (<0.06)
[2018-06-30 14:58] LABS: ABSOLUTE LYMPHOCYTES 0.4 thou/uL (0.8-5.3); ABSOLUTE MONOCYTES 0.6 thou/uL (0.0-1.2)
[2018-06-30 14:59] LABS: PLATELET ESTIMATE ADEQUATE
--- NOTE | 2018-06-30 17:51 | EKG ---
[place] [address] ELECTROCARDIOGRAM REPORT Name: JOSHUA SELF Room: [place] [address] ADM IN .R.#: [id number] Admission: 06/30/18 Attend Phys: Tere Zaragoza MD Discharge: Date of : 31 Report #: [id number] THIS REPORT FOR: //name// [facility] ED Test Date: 2018-06-30 Test Time: 14:11:11 Pat Name: JOSHUA SELF Department: Room: [facility] Gender: F Service Engine Repairer: : 1930 Requested By: Derek Badillo Order Number: [id number] MD: Ernesto Wiggins Measurements Intervals [place] Rate: 77 P: 100 MT: 193 QRS: -7 QRSD: 98 T: 31 QT: 416 QTc: 471 Interpretive Statements Sinus rhythm Inferior infarct, old Compared to ECG 06/29/2018 17:48:16 Myocardial infarct finding now present ST (T wave) deviation no longer present Electronically Signed On 06-30-2018 17:51:37 OPERATING ROOM REGISTERED NURSE by Ernesto Wiggins [email or web address] <ELECTRONICALLY SIGNED> By: Ernesto Wiggins MD, FACC 06/30/18 1751 1411 141 Ernesto Wiggins MD, FAC /EPI
[2018-06-30 18:31] VITALS: BP 132/64
[2018-06-30 19:10] VITALS: BP 129/73
[2018-06-30 23:34] VITALS: BP 107/89
[2018-07-01 03:25] VITALS: BP 136/69
[2018-07-01 08:45] VITALS: BP 137/55
[2018-07-01 11:40] VITALS: BP 105/84
--- NOTE | 2018-07-01 12:32 | CON ---
[address] [address] CONSULTATION Name: JOSHUA SELF Room: [address] IN M.R.#: [id number] Admission: 06/30/18 Attend Phys: Tere Zaragoza MD Discharge: Date of : 31 Report #: [id number] THIS REPORT FOR: //name// CC: Meghana Zaragoza DATE OF SERVICE: 07/01/2018 HISTORY OF PRESENT ILLNESS: The patient is an 88-year-old single white female, who I was asked to see in the hospital after she had a borderline elevated troponin. The history is obtained from some old records as well as the son-in-law who was present. The patient apparently presented last fall to [facility] with left leg DVT and a pulmonary embolus. She was placed on anticoagulation. She was then admitted to [facility]. She has been there at rehabilitation. She uses a walker and is in a wheelchair. Recently, she was confused and apparently the staff noticed more swelling of her left leg. She was brought to the Emergency Room last night and admitted. She has also been fatigued and short of breath. Her troponin is borderline elevated and cardiology consultation was requested because of an abnormal troponin. She denies history of myocardial infarction, chest pain, increased shortness of breath or palpitations. PAST MEDICAL HISTORY: She has had previous cervical spine surgery. MEDICATIONS: At the [place] consist of Pepcid, Lasix, lisinopril, oxybutynin, Synthroid, aspirin, Neurontin, Celexa, amlodipine, Eliquis, tramadol. ALLERGIES: She has intolerance to CODEINE, MORPHINE and PENICILLIN. FAMILY HISTORY: Negative for heart disease. SOCIAL HISTORY: She is . No smoking or alcohol abuse. REVIEW OF SYSTEMS: She has had no history of stroke, asthma. She has had breast cancer, treated with radiation therapy. No peptic ulcer disease. No liver disease, no kidney disease, no chronic skin condition. PHYSICAL EXAMINATION: GENERAL: Revealed an elderly, frail appearing female, lying in bed. She appeared in no distress. VITAL SIGNS: She had a blood pressure of 140/80, pulse is 86, afebrile. HEENT: She was anicteric, conjunctiva pink. Mucous membranes moist. NECK: Veins do not appear distended. CHEST: Clear to auscultation. HEART: Regular rate and rhythm. ABDOMEN: [place] [address] CONSULTATION Name: JOSHUA SELF Romero Room: [address]#: [id number] Admission: 06/30/18 Attend Phys: Tere Zaragoza MD Discharge: Date of : 31 Report #: [id number] EXTREMITIES: Had trace edema. SKIN: Cool and dry. NEUROLOGIC: Nonfocal. DIAGNOSTIC STUDIES: Her ECG showed a sinus rhythm with no significant ST or T-wave change. Her workup, she actually had a chest x-ray that showed evidence for hiatal hernia, normal heart size. She had venous duplex scan of the legs that showed left lower extremity and negative for DVT. She had a V/Q scan of the lung last night that was high probability for pulmonary embolus. LABORATORY DATA: Sodium 137, creatinine 1.2. Liver function studies were normal. Troponin 0.8. White blood cell count 14.0, hemoglobin 11.2. IMPRESSION AND RECOMMENDATIONS: 1. History of deep venous thrombosis and pulmonary embolism. The patient is chronically anticoagulated. 2. Elevated troponin. Recommend no further cardiac evaluation. 3. History of breast cancer. 4. Hypertension. The patient is on a calcium presley. 5. Confusion. Suspect dementia. <ELECTRONICALLY SIGNED> By: Jaspal Archer MD, FACC 07/01/18 1232 0817 0840Jaspal Archer MD, FACC /nt
--- NOTE | 2018-07-01 15:15 | 2DMMODE ---
[place] [address] 2 D/M-MODE ECHOCARDIOGRAM Name: JOSHUA SELF Room: [facility] IN [facility]#: [id number] Admission: 06/30/18 Attend Phys: Tere Zaragoza, Discharge: Date of : 31 Date of Service: 07/01/18 1124 Report #: [id number] THIS REPORT FOR: //name// APPROVED REPORT Study performed: 07/01/2018 10:04:15 EXAM: Comprehensive 2D, Doppler, and color-flow Echocardiogram Patient Location: In-Patient Room #: 229 Status: routine BSA: 1.93 HR: 78 bpm BP: 136/69 mmHg Rhythm: NSR Other Information Study Quality: Good Indications Abnormal ECG Hypoxia 2D Dimensions IVSd: 10.75 (7-11mm) LVOT Diam: 23.84 (18-24mm) LVDd: 44.05 mm PWd: 9.79 (7-11mm) Ascending Ao: 29.92 (22-36mm) LVDs: 19.73 (25-40mm) Aortic Root: 34.47 mm Volumes Left Atrial Volume (Systole) LA ESV Index: 29.30 mL/m2 Aortic Valve AoV Peak Tam.: 1.96 m/s AO Peak Gr.: 15.30 mmHg LVOT Max P.58 mmHg AO Mean Gr.: 8.25 mmHg LVOT Mean P.65 mmHg LVOT Max V: 1.18 m/s AO V2 VTI: 32.89 cm LVOT Mean V: 0.75 m/s AME (VTI): 3.47 cm2 LVOT V1 VTI: 25.55 cm Mitral Valve E/A Ratio: 0.90 MV Decel. Time: 267.28 ms MV E Max Tam.: 1.06 m/[place] [address] 2 D/M-MODE ECHOCARDIOGRAM Name: JOSHUA SELF Room: [address] IN .R.#: [id number] Admission: 06/30/18 Attend Phys: Tere Zaragoza, Discharge: Date of : 31 Date of Service: 07/01/18 1124 Report #: [id number] MV PHT: 77.51 ms MVA (PHT): 2.84 cm2 TDI E/Lateral E': 9.64 E/Medial E': 11.78 Medial E' Tam.: 0.09 m/s Lateral E' Tam.: 0.11 m/s Pulmonary Valve PV Peak Tam.: 1.13 m/s PV Peak Gr.: 5.13 mmHg Tricuspid Valve RAP Estimate: 5.00 mmHg TR Peak Gr.: 39.57 mmHg RVSP: 44.00 mmHg PA Pressure: 44.00 mmHg Left Ventricle The left ventricle is normal size. There is normal LV segmental wall motion. There is normal left ventricular wall thickness. Left ventricular systolic function is normal. The left ventricular ejection fraction is within the normal range. LVEF is 60-65%. Grade I - abnormal relaxation pattern. Right Ventricle The right ventricle is normal size. The right ventricular systolic function is normal. Atria The left atrium size is normal. The right atrium size is normal. Aortic Valve Mild aortic valve sclerosis. No aortic regurgitation is present. There is no aortic valvular stenosis. Mitral Valve Mild mitral annular calcification. Trace mitral regurgitation. No evidence of mitral valve stenosis. Tricuspid Valve The tricuspid valve is normal in structure. Mild tricuspid regurgitation. [place] [address] 2 D/M-MODE ECHOCARDIOGRAM Name: JOSHUA SELF Room: [address]#: [id number] Admission: 06/30/18 Attend Phys: Tere Zaragoza, Discharge: Date of : 31 Date of Service: 07/01/18 1124 Report #: [id number] The pulmonary valve is normal in structure. There is no pulmonic valvular regurgitation. Great Vessels The aortic root is normal in size. IVC is normal in size and collapses >50% with inspiration. Pericardium There is no pericardial effusion. <Conclusion> The left ventricle is normal size. There is normal left ventricular wall thickness. Left ventricular systolic function is normal. The left ventricular ejection fraction is within the normal range. LVEF is 60-65%. Grade I - abnormal relaxation pattern. The right ventricle is normal size. The left atrium size is normal. Mild aortic valve sclerosis. No aortic regurgitation is present. There is no aortic valvular stenosis. Mild mitral annular calcification. Trace mitral regurgitation. No evidence of mitral valve stenosis. The tricuspid valve is normal in structure. Mild tricuspid regurgitation. IVC is normal in size and collapses >50% with inspiration. There is no pericardial effusion. There is normal LV segmental wall motion. <ELECTRONICALLY SIGNED> By: Krishna Byers MD, FACC 07/01/18 1124 1124 1124 Krishna Byers MD, FACC /INF
[2018-07-01 16:00] VITALS: BP 87/47
[2018-07-01 20:00] VITALS: BP 99/61
[2018-07-02] VITALS (7 sets, daily range): BP systolic 91–125; BP diastolic 52–66
[2018-07-02] MEDS ORDERED: CLONAZEPAM 1 MG1 M1 PO (02:37)
[2018-07-02] MEDS ORDERED: BISACODYL SUPP10 MG RECTAL (02:40)
[2018-07-02] MEDS ORDERED: FLEET ENEMA133 ML RECTAL (02:43)
[2018-07-02] MEDS ORDERED: GABAPENTIN100 MG PO (02:44)
[2018-07-02] MEDS ORDERED: MIRALAX17 GM PO (02:48)
[2018-07-02 05:36] LABS: HEMATOCRIT 30.6 % (37.0-47.0); HEMOGLOBIN 10.1 gm/dL (12.0-15.0); MCH 36.4 pg (26.0-34.0); MCHC 33.1 g/dL (28.0-37.0); MPV 6.1 fl. (7.2-11.1); RBC 2.78 mil/uL (4.20-5.00); RDW-CV 13.9 % (10.5-14.5); WBC 6.8 thou/uL (4.0-11.0)
[2018-07-02 05:41] LABS: CALCIUM 8.1 mg/dL (8.5-10.1); CREATININE 1.1 mg/dL (0.6-1.3); MAGNESIUM 2.2 mg/dL (1.8-2.4); POTASSIUM 3.6 mmol/L (3.5-5.1)
[2018-07-02 16:53] LABS: URINE BILIRUBIN NEGATIVE (Negative); URINE BLOOD NEGATIVE (Negative); URINE CLARITY CLEAR; URINE COLOR YELLOW; URINE GLUCOSE-RANDOM NEGATIVE (Negative); URINE KETONES NEGATIVE (Negative); URINE LEUKOCYTES-REFLEX NEGATIVE (Negative); URINE NITRITE-REFLEX NEGATIVE (Negative); URINE PROTEIN NEGATIVE (Negative); URINE SPECIFIC GRAVITY 1.015 (1.005-1.030); URINE UROBILINOGEN 0.2 E.U./dl (0.2-1.0)
[2018-07-03] VITALS: BP 116/62
[2018-07-03 04:00] VITALS: BP 115/61
[2018-07-03 08:00] VITALS: BP 113/55
[2018-07-03 11:30] VITALS: BP 81/47
[2018-07-03 16:28] VITALS: BP 105/60
[2018-07-03 19:30] VITALS: BP 97/58
[2018-07-04] VITALS: BP 106/46
[2018-07-04 04:00] VITALS: BP 107/56
[2018-07-04 05:04] LABS: ABSOLUTE BASOPHILS 0.1 thou/uL (0.0-0.2); ABSOLUTE EOSINOPHILS 0.8 thou/uL (0.0-0.7); ABSOLUTE MONOCYTES 0.9 thou/uL (0.0-1.2); ABSOLUTE NEUTROPHILS 2.7 thou/uL (1.6-8.1); EOSINOPHILS 15.5 %; HEMATOCRIT 29.3 % (37.0-47.0); HEMOGLOBIN 9.8 gm/dL (12.0-15.0); LYMPHOCYTES 18.2 %; MCH 35.3 pg (26.0-34.0); MCHC 33.6 g/dL (28.0-37.0); MCV 105.1 fL (80.0-100.0); MONOCYTES 15.8 %; MPV 6.3 fl. (7.2-11.1); NUCLEATED RBCS 0 /100WBC; PLATELET COUNT* 327 thou/uL (150-400); POLYS 49.5 %; RBC 2.79 mil/uL (4.20-5.00); RDW-CV 13.5 % (10.5-14.5); WBC 5.4 thou/uL (4.0-11.0)
[2018-07-04 05:12] LABS: CALCIUM 7.9 mg/dL (8.5-10.1); CREATININE 1.2 mg/dL (0.6-1.3); MAGNESIUM 2.3 mg/dL (1.8-2.4); POTASSIUM 3.8 mmol/L (3.5-5.1)
[2018-07-04 07:46] LABS: PLATELET ESTIMATE ADEQUATE
[2018-07-04 07:47] LABS: MACROCYTES 1+
[2018-07-04 08:00] VITALS: BP 96/54
[2018-07-04 11:34] VITALS: BP 105/62
[2018-07-04 15:50] VITALS: BP 104/56
[2018-07-04 19:10] VITALS: BP 119/69
[2018-07-05] VITALS: BP 91/51
[2018-07-05 04:00] VITALS: BP 134/71
[2018-07-05 05:18] LABS: CREATININE 1.2 mg/dL (0.6-1.3)
[2018-07-05 08:00] VITALS: BP 144/75
[2018-07-05 12:36] VITALS: BP 104/57
[2018-07-05 20:00] VITALS: BP 130/75
[2018-07-06] VITALS: BP 128/67
[2018-07-06 04:00] VITALS: BP 125/71
[2018-07-06 06:39] LABS: CALCIUM 8.6 mg/dL (8.5-10.1); CREATININE 1.1 mg/dL (0.6-1.3)
[2018-07-06 08:00] VITALS: BP 94/57
[2018-07-06 11:51] VITALS: BP 99/65
[2018-07-06 16:00] VITALS: BP 141/76
[2018-07-06] MEDS ORDERED: CEFDINIR300 MG PO (18:53)
[2018-07-06] MEDS ORDERED: SYNTHROID88 MCG PO (18:53)
[2018-07-06] MEDS ORDERED: IRON325 PO (18:53)
[2018-07-06 19:45] VITALS: BP 126/65
[2018-07-07] VITALS: BP 140/68
[2018-07-07 04:00] VITALS: BP 142/82
[2018-07-07 08:00] VITALS: BP 118/62
[2018-07-07 12:00] VITALS: BP 102/64
[2018-07-07] MEDS ORDERED: CYCLOBENZAPRINE10 MG PO (12:19)
[2018-07-07] MEDS ORDERED: TRAMADOL 50 MG50 MG PO (12:19)
[2018-07-07 12:35] VITALS: BP 102/64
[2018-07-07] MEDS ORDERED: FOLIC ACID1 MG PO (12:55)
--- NOTE | 2018-07-07 15:23 | CON ---
[address] [address] CONSULTATION Name: JOSHUA SELF Room: [address] IN .R.#: [id number] Admission: 06/30/18 Attend Phys: Tere Zaragoza MD Discharge: Date of : 31 Report #: [id number] THIS REPORT FOR: //name// CC: Meghana Zaragoza DATE OF SERVICE: 07/02/2018 REASON FOR CONSULTATION: Recurrent DVT. REQUESTING PHYSICIAN: Dr. Zaragoza. HISTORY OF PRESENT ILLNESS: The patient is a pleasant 88-year-old woman well known to me. She has a history of breast cancer diagnosed in 2013, stage of presentation T1c N0 M0, ER positive, ND positive, HER-2 negative. She had lumpectomy followed with adjuvant radiation and adjuvant endocrine therapy with exemestane for 2 years. After that, exemestane was discontinued because of severe osteoporosis. She was seen in the office last time in 10/2013. At that time, she did not have any signs of recurrent disease. She apparently was admitted to the hospital in April at [facility] with DVT and PE according to notes. She states that she developed this after she sustained a fall at home. She was placed on anticoagulation, on Coumadin and was discharged from the hospital. She was readmitted at [facility] in May with intractable back pain, possible vertebral fracture and spinal stenosis. Subsequently, she was discharged to [facility]. She was placed on Eliquis. She is admitted now again with some shortness of breath and was noted that she has left lower extremity DVT. It is not clear if she has acute or chronic DVT now. Hematology consult is requested. The patient seems quite confused. She cannot give a very good history. She says she has been forgetful recently. She does not really remember why she is here. It is difficult for her to give me the history. PAST MEDICAL HISTORY: Significant for severe osteoporosis, history of breast cancer as per HPI, intractable chronic low back pain, depression. SOCIAL HISTORY: Does not smoke. Lives in [facility], has very supportive daughter. FAMILY HISTORY: Noncontributory. REVIEW OF SYSTEMS: Unable to obtain reliable review of systems, although she denies fevers, chills, weight loss. She has complaints of unsteadiness and falls. She has been having gait problems for quite a while. She does not have nausea, vomiting or diarrhea. Denies dysuria. Other review of systems, see above [place] [address] CONSULTATION Name: JOSHUA SELF Room: [address] IN [facility].#: [id number] Admission: 06/30/18 Attend Phys: Tere Zaragoza MD Discharge: Date of : 31 Report #: [id number] PHYSICAL EXAMINATION: GENERAL: Reveals a well-developed, well-nourished female, not in acute distress. VITAL SIGNS: Blood pressure 98/60, heart rate 79, temperature 97.7, respirations 16. HEENT: Does not reveal thrush. NECK: Supple. There is no supraclavicular or axillary lymphadenopathy. HEART: S1, S2. LUNGS: Clear. EXTREMITIES: Lower extremity, +1 edema, left slightly more swollen with some mild erythema. There are bruises on her arms. ABDOMEN: Soft. MENTAL STATUS: Oriented to self. She recognizes me, but otherwise she is not oriented in time and place. LABORATORY DATA: White count 6.8, hemoglobin 10.1, platelets 306. Sodium 135, potassium 3.6, BUN 25, creatinine 1.1, alkaline phosphatase 149, measured on 06/30. Chest x-ray shows no acute process. Doppler ultrasound shows thrombus in the proximal, mid and distal superficial femoral vein as well as popliteal vein. ASSESSMENT AND PLAN: 1. Recurrent deep vein thrombosis. It is not clear if the patient has recurrent DVT or if she still has old thrombus. I agree with oral anticoagulation, Eliquis or Xarelto. 2. The patient has a history of breast cancer. Endocrine therapy was interrupted after 2 years because of severe osteoporosis. Recurrence of disease is not excluded. Plan to order bone scan and CA 27-29. Thank you very much for allowing me to participate in care of this patient. <ELECTRONICALLY SIGNED> By: Cinthia Lira MD 07/07/18 1523 1158 1627Cinthia Lira MD /nt
== END 2018-07-07 17:25 | DRG 177 ==
LOC: M.ERS 14:04 → M.TBA-ER 16:02 → M.2W 16:02
PROVIDERS: Emergency Medicine Emergency Medical Services; Family Medicine; ADMIT Internal Medicine
PROC: 02HV33Z Insertion of Infusion Device into Superior Vena Cava, Percutaneous Approach (ICD-10-PCS; principal; 2018-07-02)
PROC: B5181ZA Fluoroscopy of Superior Vena Cava using Low Osmolar Contrast, Guidance (ICD-10-PCS; principal; 2018-07-02)
PROC: B548ZZA Ultrasonography of Superior Vena Cava, Guidance (ICD-10-PCS; principal; 2018-07-02)
PROC: 0JH63XZ Insertion of Tunneled Vascular Access Device into Chest Subcutaneous Tissue and Fascia, Percutaneous Approach (ICD-10-PCS; principal; 2018-07-02)
DX: J15.6 Pneumonia due to other Gram-negative bacteria (principal); J96.01 Acute respiratory failure with hypoxia; I26.99 Other pulmonary embolism without acute cor pulmonale; R65.11 Systemic inflammatory response syndrome (SIRS) of non-infectious origin with acute organ dysfunction; L03.116 Cellulitis of left lower limb; I50.32 Chronic diastolic (congestive) heart failure; I13.0 Hypertensive heart and chronic kidney disease with heart failure and stage 1 through stage 4 chronic kidney disease, or unspecified chronic kidney disease; E44.0 Moderate protein-calorie malnutrition; I82.402 Acute embolism and thrombosis of unspecified deep veins of left lower extremity; Z68.32 Body mass index [BMI] 32.0-32.9, adult; I95.9 Hypotension, unspecified; N18.3 Chronic kidney disease, stage 3 (moderate); D63.8 Anemia in other chronic diseases classified elsewhere; I87.8 Other specified disorders of veins; M81.0 Age-related osteoporosis without current pathological fracture; G89.29 Other chronic pain; Z88.0 Allergy status to penicillin; Z88.2 Allergy status to sulfonamides; Z88.5 Allergy status to narcotic agent; Z79.899 Other long term (current) drug therapy; Z88.6 Allergy status to analgesic agent; Z88.8 Allergy status to other drugs, medicaments and biological substances; Z85.3 Personal history of malignant neoplasm of breast; Z79.01 Long term (current) use of anticoagulants; Z86.73 Personal history of transient ischemic attack (TIA), and cerebral infarction without residual deficits

== ENCOUNTER 2019-04-16 12:10 | Emergency (ER) | payer MEDICARE, OTHER ==
[~2019-04-16] VITALS: Ht 167.6 cm; Wt 83.2 kg
[~2019-04-16 12:10] MED LIST changes: +BISACODYL SUPP10 MG RECTAL; +CEFDINIR300 MG PO; +FLEET ENEMA133 ML RECTAL; +FOLIC ACID1 MG PO; +MILK OF MA2400 MG/10 PO; +MIRALAX17 GM PO; +NYAMYC15 GM TOP; +POTASSIUM20 PO; +SYNTHROID88 MCG PO
[2019-04-16] MEDS ORDERED: FUROSEMIDE 20 M20 MG PO (12:44)
[2019-04-16] MEDS ORDERED: LASIX 40 MG TAB40 MG PO (12:45)
[2019-04-16] MEDS ORDERED: METOLAZONE 2.52.5 MG PO (12:46)
[2019-04-16] MEDS ORDERED: POTASSIUM20 PO (12:48)
[2019-04-16] MEDS ORDERED: BISACODYL10 MG RECTAL (12:51)
[2019-04-16] MEDS ORDERED: FLUTICASONE PRO30 G1 TOP (12:52)
[2019-04-16] MEDS ORDERED: KETOCONAZOLE15 GM TOP (12:53)
[2019-04-16] MEDS ORDERED: VOLTAREN GEL 1100 G1 TOP (12:54)
[2019-04-16] MEDS ORDERED: CYMBALTA20 MG PO (12:55)
[2019-04-16 16:24] VITALS: BP 112/63
== END 2019-04-16 16:27 | disposition home or self-care (01) ==
LOC: M.ERS 12:10
DX: S22.42XA Multiple fractures of ribs, left side, initial encounter for closed fracture (principal); I10 Essential (primary) hypertension; Z90.710 Acquired absence of both cervix and uterus; Z86.73 Personal history of transient ischemic attack (TIA), and cerebral infarction without residual deficits; Z85.3 Personal history of malignant neoplasm of breast; Z86.711 Personal history of pulmonary embolism; Z86.718 Personal history of other venous thrombosis and embolism; Z88.6 Allergy status to analgesic agent; Z88.1 Allergy status to other antibiotic agents; Z88.5 Allergy status to narcotic agent; Z88.0 Allergy status to penicillin; Z88.2 Allergy status to sulfonamides; W06.XXXA Fall from bed, initial encounter; Y93.89 Activity, other specified; Y92.89 Other specified places as the place of occurrence of the external cause; Y99.8 Other external cause status